=== PATIENT | male | born 1960 | race African-American/Black ===

== ENCOUNTER 2021-02-06 09:13 | Emergency (ER) | payer MEDICARE, OTHER ==
[~2021-02-06] VITALS: Ht 175.3 cm; Wt 90.9 kg
[2021-02-06 10:41] LABS: BASOPHILS % (AUTO) 0.8 % (0.0-2.0); EOSINOPHILS % (AUTO) 6.9 % (1.0-6.0); HEMATOCRIT 39.9 % (41-53); HEMOGLOBIN 13.2 g/dL (13.5-17.5); LYMPHOCYTES # (AUTO) 1.6 K/uL (1.0-4.8); LYMPHOCYTES % (AUTO) 34.1 % (22.0-44.0); MEAN CORPUSCULAR HEMOGLOBIN 30.2 pg (26.0-34.0); MEAN CORPUSCULAR HGB CONC 33.2 G/dL (31.0-37.0); MEAN CORPUSCULAR VOLUME 91 fL (80-100); MONOCYTES # (AUTO) 0.4 K/uL (0.1-1.0); MONOCYTES % (AUTO) 9.8 % (2.0-9.0); NEUTROPHILS # (AUTO) 2.2 K/uL (1.8-7.7); NEUTROPHILS % (AUTO) 48.4 % (40.0-70.0); PLATELET COUNT (AUTO) 112 K/uL (150-450); RED BLOOD CELL COUNT(AUTO) 4.38 MIL/uL (4.50-5.90); RED CELL DISTRIBUTION WIDTH 16.7 % (11.5-14.5)
[2021-02-06 10:48] LABS: CALCIUM, TOTAL 10.1 mg/dL (8.8-10.5); CREATININE 9.48 mg/dL (0.60-1.30); POTASSIUM 5.1 mmol/L (3.5-5.1)
[2021-02-06 10:53] LABS: ALBUMIN 3.5 g/dL (3.4-5.0); BILIRUBIN,TOTAL 0.5 mg/dL (0.1-1.0); TOTAL PROTEIN, SERUM 9.4 g/dL (6.4-8.2)
[2021-02-06 11:36] LABS: GLUCOSE,POINT OF CARE 271 MG/DL (70-110)
[2021-02-06 13:00] VITALS: BP 134/72
[2021-02-06] MEDS ORDERED: INSULIN LISPRO 100 UNITS/ML SQ ONE (14:15)
[2021-02-06 14:19] LABS: GLUCOSE,POINT OF CARE 299 MG/DL (70-110)
== END 2021-02-06 14:35 | disposition home or self-care (01) ==
LOC: EMS 09:26
DX: E11.621 Type 2 diabetes mellitus with foot ulcer (principal); I73.9 Peripheral vascular disease, unspecified
CPT/HCPCS: 80053; 82962; 85025; 93925; 96372; 99285; J1815